=== PATIENT | male | born 2000 ===

== ENCOUNTER 2018-02-15 07:17 | Day surgery (SDC) | payer MEDICAID ==
[2018-02-15 08:37] VITALS: O2SAT 100
[2018-02-15 08:42] VITALS: BMI 29.7
[2018-02-15] MEDS ORDERED: Midazolam 2 MG/2 ML VIAL ONE (09:57)
[2018-02-15] MEDS ORDERED: Propofol 10 mg/ml Inj (20 ML) ONE (09:57)
[2018-02-15] MEDS ORDERED: Lactated Ringer's 1,000 ML IV ONE ×2 (10:10→11:35)
[2018-02-15] MEDS ORDERED: Bupivacaine HCl 0.25% PF (30 ml) Inj ONE (10:13)
[2018-02-15] MEDS ORDERED: cefTRIAXone (Rocephin) 1 gm Inj ONE (10:14)
[2018-02-15] MEDS ORDERED: cefTRIAXone (Rocephin) 1 gm Inj IM ONE (10:15)
[2018-02-15] MEDS ORDERED: Lidocaine 1% Inj (20ml) IJ ONE (10:39)
[2018-02-15] MEDS ORDERED: HYDROmorphone 1 mg/ml ISec IVP PRN (11:20)
[2018-02-15] MEDS ORDERED: Lactated Ringer's 1,000 ML IV SCH (11:30)
[2018-02-15 12:43] VITALS: RESP 18
[2018-02-15 14:37] VITALS: BP 110/60; PULSE 86; TEMP 98.1
--- NOTE | 2018-02-15 22:39 | OP ---
Copied To: Willa Fransworth MD Attending MD: Willa Farnsworth MD PROCEDURE DATE: 02/15/2018 PREOPERATIVE DIAGNOSIS: Phimosis. POSTOPERATIVE DIAGNOSIS: Phimosis. PROCEDURE PERFORMED: Circumcision. TYPE OF ANESTHESIA: General anesthesia. DESCRIPTION OF PROCEDURE: The patient was placed on the operating table in the supine position. The area of the groin was draped and prepped in sterile manner, could not retract the foreskin initially to clean it, but that happened later, putting 10 mL of 1% lidocaine at the base of the penis for local anesthetic effect. At this point, I made two circumferential incisions, one on the tracing the wright of the glans penis and the other one after I had retracted the skin back and cleaned this. was there. We made an incision approximately 1 cm to 1.5 cm behind the wright. Once this was done then I removed the redundant foreskin, cauterized some active bleeders and then approximated the skin edges with multiple interrupted 4-0 chromic sutures. Once this was done, a compressive Coban was placed over the wound site and the patient then was taken from the operating room in good condition. Willa Farnsworth MD
== END 2018-02-15 14:40 | disposition home or self-care (01) ==
LOC: H.OPSURG 07:17
PROVIDERS: ATTEND Urology
DX: N47.2 Paraphimosis (principal); N47.1 Phimosis
CPT/HCPCS: 54161; 88304; J0696; J1170; J2001; J2250; J2704; J3010; J7120